=== PATIENT | male | born 1970 | race Hispanic/Latino ===

== ENCOUNTER 2023-05-03 10:46 | Emergency (ER) | payer OTHER ==
[2023-05-03] MEDS ORDERED: Famotidine/PF 20 mg/2ml Vial ONE (11:23)
[2023-05-03] MEDS ORDERED: methylPREDNISolone Sod Succ/PF 125 MG/2 ML VIAL ONE (11:23)
== END 2023-05-03 14:25 | disposition home or self-care (01) ==
LOC: ERS 10:46
DX: T78.40XA Allergy, unspecified, initial encounter (principal); E11.9 Type 2 diabetes mellitus without complications; I10 Essential (primary) hypertension; E78.5 Hyperlipidemia, unspecified; Z79.899 Other long term (current) drug therapy; W57.XXXA Bitten or stung by nonvenomous insect and other nonvenomous arthropods, initial encounter
CPT/HCPCS: 93005; 96374; 96375; J2930; S0028